=== PATIENT | female | born 1930 | race Caucasian/White ===

== ENCOUNTER 2016-04-21 14:00 | Inpatient (IN) | payer MEDICARE ==
[~2016-04-21] VITALS: Ht 162.6 cm; Wt 59.9 kg
--- NOTE | ~2016-04-21 | DS ---
PATIENT'S NAME: JOHN MARIN [facility] AGE: 85 Y [address] ROOM: [place] [address] LOCATION: [facility] ADMIT DATE: 05/03/2016 Discharge Summary DISCHARGE DATE: 05/05/2016 FAMILY PHYSICIAN: Stacy Leyva MD ATTENDING PHYSICIAN: Americo Haro PRIMARY DIAGNOSIS: Osteoarthritis, left hip. SECONDARY DIAGNOSES: 1. Atrial fibrillation. 2. Chronic obstructive pulmonary disease. 3. Hypertension. 4. Hyperlipidemia. 5. History of hypoxia. 6. Peripheral vascular disease. PROCEDURE PERFORMED: Left total hip arthroplasty. HISTORY: The patient is an 85-year old female, who presents with advanced left hip degenerative joint disease and associated severely compromised activities of daily living. The patient has decided to proceed with total left hip arthroplasty after having been thoroughly counseled regarding the risks, benefits, limitations and alternatives. Please refer to the outpatient clinic notes and admission history and physical for this patient. HOSPITAL COURSE: The patient underwent a total left hip arthroplasty on 05/03/2016 without complications. Spinal anesthesia plus subcutaneous and periarticular local anesthesia was utilized. The patient received 24 hours of perioperative prophylactic antibiotics and remained hemodynamically stable, neurovascularly intact throughout the entire hospital course. The postoperative prophylactic deep venous thrombosis prophylaxis consisted of Eliquis, early mobilization and pneumatic compression devices. Daily physical therapy for gait training, transfer training, and reinforcement of hip dislocation precautions were received. The patient progressed well in physical therapy. On the date of discharge, 05/05/2016, the incision at the hip was healing well and showed no signs of infection. DISPOSITION: Home. DISCHARGE ACTIVITY: The patient is to bear weight as tolerated with strict hip dislocation precautions as instructed. There are to be no dressing changes. Dr. Haro is to be notified immediately if there is any increased pain, fevers, chills, erythema, or drainage. DISCHARGE MEDICATIONS: PATIENT'S NAME: JOHN MARIN [facility] AGE: 85 Y [address] ROOM: [place] [address] LOCATION: [facility] ADMIT DATE: 05/03/2016 Discharge Summary DISCHARGE DATE: 05/05/2016 FAMILY PHYSICIAN: Stacy Leyva MD ATTENDING PHYSICIAN: Americo Haro 1. Eliquis 2.5 mg 1 tablet p.o. b.i.d. for atrial fibrillation and postoperative DVT prophylaxis. 2. Percocet 5/325 mg 1 to 2 tablets p.o. every 4 hours p.r.n. for pain. 3. Gabapentin 300 mg 1 tablet p.o. 3 times daily for pain. She was then instructed to continue all her other preadmission medications as instructed by her internal medicine doctor. FOLLOWUP: Followup appointment is to be with LOUIS Dawson, on 05/10/2016 for her initial postoperative evaluation. JUNIE FERNANDEZ PA-C FOR MD JAXSON KESSLER/caitlin /[id number] d: 05/11/16 0539 t: 05/17/16 1317, DISCHARGE SUMMARY
--- NOTE | ~2016-04-21 | OR ---
PATIENT'S NAME: RUBIA MARIN [facility] AGE: 85 Y [address] ROOM: [place] [address] LOCATION: [facility] ADMIT DATE: 05/03/2016 OR/Procedure Report DISCHARGE DATE: FAMILY PHYSICIAN: Stacy Leyva MD ATTENDING PHYSICIAN: TUSHAR GRANDE SURGEON: Tushar Grande MD SIGNAL CIRCUIT DESIGNER: Cruzito Taylor PA-C and Arslan Young. DATE OF PROCEDURE: 05/03/2016 PRE-OP DIAGNOSIS: Primary osteoarthritis, left hip. POST-OP DIAGNOSIS: Primary osteoarthritis, left hip. OPERATION: Left total hip arthroplasty. ANESTHESIA: Spinal anesthesia plus subcutaneous and periarticular local anesthesia (ropivacaine with epinephrine and Toradol). ESTIMATED BLOOD LOSS: Approximately 200 mL. DRAIN: None. SPECIMEN: None. COMPLICATIONS: None. IMPLANTS: 1. Tiger Trident titanium size 52 mm hemispherical uncemented acetabular shell with 1 dome hole cover and no screws. 2. Waldo X3 neutral acetabular polyethylene liner with 36 mm inner diameter. 3. Tiger Accolade II, size 7, high-offset, uncemented femoral component. 4. A 36 mm diameter metallic femoral head with -5 mm neck length. INDICATION FOR SURGERY: Rubia Marin is an 85-year-old female who presents with advanced left hip primary osteoarthritis and associated severely compromised activities of daily living. The patient has decided to proceed with hip replacement after having been thoroughly counseled regarding the associated risks, benefits, and limitations. We have specifically reviewed the risks and implications of infection, deep venous thrombosis, pulmonary embolism, mortality, neurovascular complications, blood transfusion (and associated potential for disease transmission or transfusion reaction), stiffness, instability, leg length discrepancy, mechanical deterioration of the components (due to wear and to loosening), and the potential need for revision. PATIENT'S NAME: RUBIA MARIN [facility] AGE: 85 Y [address] ROOM: [place] [address] LOCATION: [facility] ADMIT DATE: 05/03/2016 OR/Procedure Report DISCHARGE DATE: FAMILY PHYSICIAN: Stacy Leyva MD ATTENDING PHYSICIAN: TSUHAR GRANDE DESCRIPTION OF PROCEDURE: The patient was positioned in a lateral decubitus position with the left side up after administration of anesthesia and prophylactic antibiotics. An axillary roll was placed and the non-operative leg was well padded. The pelvis was locked perpendicularly to the floor on a pegboard. The left hip and entire operative extremity were prepped and draped with vigilant sterile technique. The patient's name as well as the intended operative side and procedure were confirmed with a verbal time-out involving myself, the circulating nurse, the scrub nurse, and the anesthesiologist. The left hip was approached through a standard posterolateral incision. The fascia mariam and the gluteus monika fascia were sharply divided in line with the overlying skin incision. The sciatic nerve was identified and was vigilantly protected throughout the entire case. The short external rotators and posterior capsule were divided from their respective femoral insertions and tagged with four #1 Ethibond sutures for later repair. The hip was posteriorly dislocated with combined flexion, adduction, and internal rotation. The femoral neck osteotomy was performed with an oscillating saw. Inspection of the femoral head demonstrated full-thickness loss of articular cartilage throughout the weightbearing surface. There was no femoral head collapse. There was a moderate-sized osteophyte at the periphery of the femoral head. Circumferential acetabular exposure was obtained. Inspection of acetabulum demonstrated full-thickness loss of articular cartilage throughout the anterosuperior two-thirds. There was no dysplasia. There was degenerative tearing of the anterosuperior acetabular labrum. There were no loose bodies. There was a large effusion consisting of benign appearing, translucent synovial fluid. Remnants of the acetabular labrum were sharply thoroughly excised. The acetabulum was sequentially progressively reamed up to 51 mm with hemispherical power reamers. The final acetabular shell was impacted into position in 20 degrees of anteversion and 45 degrees of inclination. An excellent press-fit was obtained. No supplemental dome screws were necessary. A neutral trial liner was inserted. Attention was next focused upon femoral preparation. The femoral canal initiator was utilized. No reaming was performed (except for with the canal finder). The patient was noted to be moderately severely osteopenic. The femoral canal was subsequently sequentially progressively broached up to a size 7. The size 7 broach obtained excellent axial and rotational stability. Trial reductions with the above specified construct yielded acceptable stability and acceptable reproduction of leg length and offset. All trial PATIENT'S NAME: BRITTNEYJOSERUBIA [facility] AGE: 85 Y [address] ROOM: [id number] [place], [place] [address] LOCATION: [facility] ADMIT DATE: 05/03/2016 OR/Procedure Report DISCHARGE DATE: FAMILY PHYSICIAN: Stacy Leyva MD ATTENDING PHYSICIAN: TUSHAR GRANDE components were removed. The final acetabular liner was inserted with excellent circumferential visualization of its locking mechanism to assure adequate deployment. The final femoral component was impacted into position. The femoral component achieved excellent axial and rotational stability. The trunnion of the femoral component was vigilantly protected prior to placement of the femoral head. The trunnion of the femoral component was thoroughly cleaned and dried prior to placement of the femoral head. The incision was thoroughly irrigated with bacteriostatic pulsatile saline lavage multiple times throughout the case. The entire joint space was thoroughly inspected and thoroughly irrigated to assure that there was no residual debris of any sort. A final reduction was then performed. After final reduction, the hip could be firmly externally rotated in full extension and zero degrees of abduction without anterior subluxation. In neutral rotation and zero degrees of abduction, the hip could be firmly flexed to 120 degrees without instability. At 90 degrees of flexion and zero degrees abduction, the hip could be internally rotated to 70 degrees before there was any hint of posterior subluxation. The posterior capsule and short external rotators were repaired through two drill holes in the posterior aspect of the greater trochanter. The fascia mariam and gluteus monika fascia were closed with multiple simple and [id number] interrupted # 1 Ethibond and #1 Vicryl sutures. Subcutaneous tissues were thoroughly re-irrigated with bacteriostatic pulsatile saline lavage. Subcutaneous tissues were re-approximated with simple buried interrupted #0 Vicryl sutures. The skin was closed with superficial buried interrupted 2-0 Vicryl sutures followed by a running subcuticular 3-0 Monocryl suture, followed by Octylseal, followed by Steri- Strips with benzoin, followed by an occlusive Mepilex dressing. There were no intra-operative complications. It should be noted that the physician's nutrition services assistant played an active, integral role throughout this entire operation. By providing expert retraction, they greatly facilitated and expedited safe and effective exposure of the proximal femur and acetabulum for preparation and implantation of the components. They were also actively involved in the patient's positioning, prepping and draping, as well as wound closure. PATIENT'S NAME: RUBIA MARIN [facility] AGE: 85 Y [address] ROOM: [id number] [place] [id number] LOCATION: [facility] ADMIT DATE: 05/03/2016 OR/Procedure Report DISCHARGE DATE: FAMILY PHYSICIAN: Stacy Leyva MD ATTENDING PHYSICIAN: TUSHAR GRANDE MD SALMA KESSLER/modl /[id number] d: 05/03/16 1428 t: 05/08/16 1006, OPERATIVE SUMMARY
[~2016-04-21 14:00] MED LIST: ACETAMINOPHEN325 MG PO; ALBUTEROL2.5 MG/31 INH; ASPIRIN EC81 MG PO; CARDIZEM CD (T120 MG PO; CILOSTAZOL50 MG PO; COLACE100 MG PO; ELIQUIS2.5 MG PO; LEVAQUIN500 MG PO; LEXAPRO10 MG PO; MULTIVITAMINS1 EAC1 PO; NAPROSYN250 MG PO; NORCO 5-325 MG1 TAB PO; OXYGEN M-15 INH; PLAVIX75 MG PO; VASOTEC10 MG PO
[2016-04-21] MEDS ORDERED: CARTIA XT240 MG PO (14:53)
[2016-04-21] MEDS ORDERED: ELIQUIS2.5 MG PO (14:55)
[2016-04-21] MEDS ORDERED: NEURONTIN300 MG PO (14:56)
[2016-05-03] MEDS ORDERED: OXYGEN M-15 INH (06:57)
--- NOTE | 2016-05-03 14:28 | NUR ---
Introduced self/role to patient who attended the preop joint class. Reports she lives in one level home in [place] with family. Plans to return home with daughter Josiane available to help as needed. Reports she has a walker, elevated toilet seat and a walk in shower. Reviewed use of IS and encouraged at least 10 deep breaths per hour. Encouraged moving feet up and down. Has foot pumps and TEDs on. Will follow and assist as needs identified.
--- NOTE | 2016-05-03 16:40 | NUR ---
Significant Event: From PACU at 1210. Dressing C/D/I. Ice at all times. CSM WNL. Percocet 1 tab for pain control. Remains on 2L O2 as per home. IV infusing to L) forearm and IV saline locked to R) hand. Ambulates with one assist and walker. No void at this time. Follow up:
--- NOTE | 2016-05-04 01:56 | NUR ---
Shift Summary: Patient can ambulate with one assist/walker. Voiding without difficulty. Tolerating regular diet well. Taking one Percocet at a time for pain with good control. Wears 2L O2 at all times at home and here.
--- NOTE | 2016-05-04 09:52 | NUR ---
945 Introduced self and CM role to patient. Patient states she is sleepy but is doing well. She states she has a walker, coal dumping equipment operator, shower bench, and other DME to assist her upon leaving the hospital. Pt lives with her daughter, whom is a nurse, that will help her with her recovery. No other needs or concerns at this time. Wrote CM name on markerboard and told pt to contact us if any concerns arise. Plan to return back to her home in [place], [place] with daughter's assistance tomorrow or 05/07. CM De Icer Installer
--- NOTE | 2016-05-04 16:47 | NUR ---
Significant Event: Ambulates with SBA and walker. Dressing C/D/I. Ice at all times. Voids without difficulty. Pain controled with Percocet 1 tab, see emar for times. Remains on 2L O2 as per home requirements. CSM WNL. Follow up: Plans to dismiss home tomorrow afternoon
--- NOTE | 2016-05-05 04:56 | NUR ---
Significant Event: Dressing is clean, dry and intact. CSM WNL. Voids without difficulty. 1 assist with transfers. Percocet last at 0110. On 2 L of oxygen and wears it at home. Possibld dismissal. Follow up:
[2016-05-05] MEDS ORDERED: COLACE100 MG PO (10:46)
[2016-05-05] MEDS ORDERED: MIRALAX17 GM PO (10:47)
[2016-05-05] MEDS ORDERED: PERCOCET 5-3251 EACH PO (10:48)
--- NOTE | 2016-05-05 14:55 | NUR ---
Patient had no questions o concerns about discharge instructions. Dressing was C/D/I. Vital signs were stable. IV's removed in both arms. Patient is on 2L/O2. Patient was wheeld to front lobby with daughter for dimissal at 1445.
== END 2016-05-05 17:35 | disposition disaster alternative care site (69) | DRG 470 ==
LOC: G3N 05-03 06:17
PROVIDERS: ADMIT Orthopaedic Surgery
PROC: 0SRB02A Replacement of Left Hip Joint with Metal on Polyethylene Synthetic Substitute, Uncemented, Open Approach (ICD-10-PCS; principal; 2016-05-03)
DX: M16.12 Unilateral primary osteoarthritis, left hip (principal); Z99.81 Dependence on supplemental oxygen; I48.91 Unspecified atrial fibrillation; I10 Essential (primary) hypertension; E78.5 Hyperlipidemia, unspecified; J44.9 Chronic obstructive pulmonary disease, unspecified; I73.9 Peripheral vascular disease, unspecified; Z79.01 Long term (current) use of anticoagulants
CPT/HCPCS: C1776; J0690; J1885; J2001; J2795; J7030; J7120

== ENCOUNTER → 2016-04-22 | Outpatient (CLI) | payer MEDICARE ==
[~2016-04-22] MED LIST changes: +CARTIA XT240 MG PO; +MIRALAX17 GM PO; +NEURONTIN300 MG PO; +PERCOCET 5-3251 EACH PO
== END | disposition disaster alternative care site (69) ==
LOC: GNJRC 10:43
DX: Z01.812 Encounter for preprocedural laboratory examination (principal); M16.12 Unilateral primary osteoarthritis, left hip

== ENCOUNTER 2016-06-27 09:56 | Emergency (ER) | payer MEDICARE ==
--- NOTE | ~2016-06-27 | CON ---
PATIENT'S NAME: JOHN MARIN [facility] AGE: 86 Y [address] ROOM: [place] [address] LOCATION: ED ADMIT DATE: 06/27/2016 Consultation DISCHARGE DATE: FAMILY PHYSICIAN: Stacy Leyva MD ATTENDING PHYSICIAN: Paul Rao HISTORY OF PRESENT ILLNESS: Ms. Mccoy is an 86-year-old female upon whom I performed a left total hip arthroplasty on 05/03. She has been enthusiastically pleased regarding the outcome of her left hip replacement (and she continues to be enthusiastically pleased regarding the outcome of her left hip replacement). She and her daughter state that she has been more active than she has been over the past 2 years. In fact, she has been anticipating a trip to [place]. She is returned to routine activities of daily living such as performing laundry, walking her mailbox for the first time in 2 years, and gardening. In fact, she has in the process of packing for an upcoming [employer] [email or web address]. The patient and her daughter called me this morning to inform me that she had developed acute left groin pain, erythema, and swelling. She states that she had a vague "pulling" sensation in her left groin last evening while performing abduction exercises with her left leg. Pain, swelling, and tenderness were quite significant this morning. I urged them to come into the emergency room promptly. I have emphasized that she has no pain in the hip itself and that all symptoms are confined to the inguinal region. PAST MEDICAL HISTORY: Significant for having undergone a right femoral to left femoral arterial bypass with Dr. Georgi Tinoco in 06/2015. She had no wound healing complications in the left groin after this procedure. She has noticed no symptoms radiating into the left leg over the last 24 hours. No swelling or abnormal temperature has been noted in the left leg. She denies fevers or chills. She notes no pain with range of motion of her hip. She is on Eliquis. She took Eliquis this morning. PHYSICAL EXAMINATION: She is alert, oriented, well-hydrated, well-nourished, slender female who appears younger than her stated age. She is alert and oriented x3 and in no distress whatsoever. Her left hip incision is completely epithelialized with the exception of two small intact thin eschars along the proximal margin of the incision. There was no erythema, induration, or swelling along the posterolateral left hip incision. There is a 12 cm diameter region of erythema over the left inguinal region and PATIENT'S NAME: JOHN MARIN [facility] AGE: 86 Y [address] ROOM: [place] [address] LOCATION: [facility] ADMIT DATE: 06/27/2016 Consultation DISCHARGE DATE: FAMILY PHYSICIAN: Stacy Leyva MD ATTENDING PHYSICIAN: Paul Rao an associated 5 cm tender mass at the subcutaneous region directly over the femoral canal. There is significant associated tenderness. There are no active skin lesions over the anterior aspect of the left groin. There is no pain or crepitation or apprehension with vigorous passive range of motion of the left hip. She is able to actively flex the left hip against gravity with no discomfort. Prior to my arrival, the patient was seen and examined by Dr. Rao (emergency room physician). It was Dr. Rao's impression that the hip was benign. He ordered an ultrasound, which demonstrated a subcutaneous fluid collection anterior to the femoral vessels, which did not communicate with the joint space and which did not appear to be an aneurysm (as per the nanotechnology engineering technician). RADIOGRAPHS: I have personally called the nanotechnology engineering technician. He informed me that the subcutaneous fluid collection was indirectly with the femoral vessels. He states that there was no suggestion whatsoever that the fluid communicated further deeply either. Specifically, he saw no evidence whatsoever of any hint of communication with the left hip joint space. Normal swell was noted in the femoral artery and within the right femoral to left femoral bypass graft. 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 No suggestion of periprosthetic left hip infection (either subjectively or objectively). Risks of the left hip prosthesis becoming secondarily infected. RECOMMENDATIONS: Prompt vascular surgery consultation. Unfortunately, Dr. Tinoco will be out of town in [place] until Tuesday. We spoke with him and confirmed this. Dr. Rao has spoken with Dr. Cobian (vascular surgeon at [facility] in [place] who is cross covering for Dr. Tinoco). Dr. Rao informed Dr. Cobian the patient is on Eliquis and informed Dr. Cobian that the patient has underlying total hip arthroplasty that we wished to do everything to prevent secondary infection of the left hip (including treating any associated infection in the left groin promptly and aggressively as soon as reasonably possible). PATIENT'S NAME: JOHN MARIN [facility] AGE: 86 Y [address] ROOM: [place] [address] LOCATION: [facility] ADMIT DATE: 06/27/2016 Consultation DISCHARGE DATE: FAMILY PHYSICIAN: Stacy Leyva MD ATTENDING PHYSICIAN: Paul Rao I have informed the patient and her daughter that the fact that she is on Eliquis could delay treatment. We have asked Dr. Cobian's permission to commence the empiric intravenous antibiotics prior to the patient's departure from [facility], [facility]. MD SALMA KESSLER/caitlin /[id number] d: 06/27/164 t: 07/08/162034, CONSULTATION REPORT
--- NOTE | ~2016-06-27 | ER ---
PATIENT'S NAME: JOHN MARIN [facility] AGE: 86 Y [address] ROOM: [place] [address] LOCATION: ED ADMIT DATE: 06/27/2016 ER/Outpatient Report DISCHARGE DATE: FAMILY PHYSICIAN: Stacy Leyva MD ATTENDING PHYSICIAN: Paul Rao TIME OF ARRIVAL: 0956 hours. TIME OF EVALUATION: 1002 hours. CHIEF COMPLAINT: Left groin pain, redness, and swelling. HISTORY OF PRESENT ILLNESS: The patient is an 86-year-old female presents to emergency department today with chief complaint of left groin pain, redness, and swelling. She reports this started earlier this morning. The patient does have a history of right- to-left fem-fem bypass graft as well as a left iliac stent placed about approximately one year ago. She did undergo a left total hip 2 months ago. She does report some low-grade fever subjectively and chills. Denies any nausea or vomiting. No diarrhea or constipation. She has been ambulating and the hip is mildly painful, 4-10 in severity, it is sharp. PAST MEDICAL HISTORY: COPD, dyslipidemia, hypertension, osteoporosis, peripheral vascular disease, and depression. PAST SURGICAL HISTORY: Smotp-te-esrp fem-fem bypass, left common iliac stents, cataract surgery, cholecystectomy, colonoscopy, left total hip. SOCIAL HISTORY: The patient denies any tobacco use. Reports one beer daily. Denies any illicit drug use. ALLERGIES: NO KNOWN DRUG ALLERGIES. MEDICATIONS: Please see list. PRIMARY CARE DOCTOR: Stacy Leyva MD. PATIENT'S NAME: JOHN MARIN [facility] AGE: 86 Y [address] ROOM: [place] [address] LOCATION: [facility] ADMIT DATE: 06/27/2016 ER/Outpatient Report DISCHARGE DATE: FAMILY PHYSICIAN: Stacy Leyva MD ATTENDING PHYSICIAN: Paul Rao REVIEW OF SYSTEMS: All systems are reviewed by myself and negative with the exception of those discussed in HPI and past medical history. PHYSICAL EXAMINATION: VITAL SIGNS: Blood pressure 129/76, pulse 68, respiratory rate 18, temperature 99.2, oxygen saturation 92% on 2 L nasal cannula. GENERAL: The patient is an 86-year-old female, who appears stated age, in no acute distress. Well developed, well nourished. HEENT: Normocephalic, atraumatic. Pupils are equal, round, and reactive to light. NECK: Supple. There is no nuchal rigidity. CARDIOVASCULAR: Regular rate and rhythm. No murmurs, rubs, or gallops. LUNGS: Diminished diffusely. No wheezes, rales, or rhonchi. ABDOMEN: Soft, nontender, and nondistended. No rebound, rigidity, or guarding. MUSCULOSKELETAL: The patient does move all 4 extremities. No axial loading noted to the left hip. SKIN: The patient does have in the left inguinal region area of erythema at the inguinal fold. There is mass palpated. It is nonpulsatile. 2/4 DP and PT pulses are equal bilaterally. LABORATORY DATA AND X-RAYS: Labs and x-rays are obtained. An ultrasound of the left inguinal region was obtained and I have discussed results with the environmental engineering technician and reviewed the images myself. It does reveal a 5 cm x 4 cm x 3 cm well-defined septated fluid collection to superficial subcutaneous tissues to the anterior aspect of the left inguinal area. Does not appear to involve the femoral vein. Does not appear to involve the left hip. CBC: White blood cell count 12.1, hemoglobin 15.3, hematocrit 47.8, and ANC is 15.3, lactate is normal. Coags are normal. CMP is unremarkable. LFTs are normal. Procalcitonin is normal. IMPRESSION: 1. 5 cm x 4 cm x 3 cm septated well-defined fluid collection to superficial subcutaneous tissue in the anterior aspect of the left inguinal region with concern for potential abscess above femoral-femoral bypass. 2. Initial visit. EMERGENCY DEPARTMENT COURSE: The patient was brought back to the examination room. Seen and evaluated by myself. IV is established. Laboratory analysis and imaging are obtained as described above. Ultrasound is obtained and discussed. Prior to arrival here in the emergency departmenThe patient's family had called Dr. Haro who had performed the total hip two months ago. Dr. Haro has seen and evaluated the PATIENT'S NAME: JOHN MARIN [facility] AGE: 86 Y [address] ROOM: [place] [address] LOCATION: ED ADMIT DATE: 06/27/2016 ER/Outpatient Report DISCHARGE DATE: FAMILY PHYSICIAN: Stacy Leyva MD ATTENDING PHYSICIAN: Paul Rao patient here in the emergency department as well. Please see his dictation. With the evidence of fluid collection on anterior aspect and concern for potential abscess, there is certainly concern for potential graft infection. I have contacted Dr. Cobian who is on-call for [facility] in [place]. I have discussed the case with him. He does report likely would not be surgical until tomorrow, does recommend contacting Dr. Tinoco who placed the graft. I have contacted Dr. Tinoco. He is currently out of town and will be until late next week. He has recommended transfer for further evaluation, treatment, and management. We did attempt to contact Dr. Cobian again. In the meantime, I did contact [facility] for potential transfer, there vascular surgeon had recommended [facility]. [facility] was contacted. [facility] does not have any bed availability. At this time, Dr. Cobian was contacted and he does agree to accept the patient for further evaluation, treatment, and management. The patient is transferred via ambulance to [facility] under the care of Dr. Cobian. The patient did receive 1 g of vancomycin IV as well as 4.5 g of Zosyn IV prior to transfer. The patient did require critical care time of 31 minutes, this did include talking with family, talking with multiple consultants, ordering tests, reviewing tests, as well as close monitoring the patient with potential graft infection and fluid collection of left inguinal region. This did require multiple consultations with multiple physicians. DISPOSITION: The patient transferred to [facility] in [place] in stable condition. DO GISSELLE AGUIRRE/rembertol /[id number] d: [id number] t: 06/30/16 0654, OUTPATIENT REPORT
[2016-06-27 10:33] LABS: BASOPHIL # 0.1 K/uL (0.0-0.2); BASOPHIL % 0.4 %; EOSINOPHIL # 0.1 K/uL (0.0-0.5); EOSINOPHIL % 0.7 %; HEMATOCRIT 47.8 % (30.0-46.0); HEMOGLOBIN 15.3 g/dL (10.0-15.0); IMMATURE GRANULOCYTE % 0.2 %; LYMPHOCYTE # 1.9 K/uL (0.8-4.0); LYMPHOCYTE % 15.5 %; MCV 96.8 fl (83.0-98.0); MONOCYTE # 1.3 K/uL (0.0-1.0); MONOCYTE % 10.9 %; MPV 9.4 fl (9.4-12.4); NEUTROPHIL # (ANC) 8.7 K/uL (1.8-7.8); NEUTROPHIL % 72.3 %; NRBC % 0 /100WBC (0-0.00); PLATELET COUNT 246 K/uL (150-450); RBC 4.94 M/uL (3.00-5.00); RDW-CV 14.1 % (11.9-14.6); WBC 12.1 K/uL (4.0-11.0)
[2016-06-27 10:44] LABS: INR - (THERAPEUTIC) 0.97 (0.92-1.07); PROTIME 10.2 SECONDS (9.8-11.4); PTT 28 SECONDS (25-32)
[2016-06-27 10:50] LABS: ALBUMIN 3.3 gm/dL (3.5-5.0); ALK PHOS 69 IU/L (33-138); ALT 12 IU/L (12-78); ANION GAP 11.4 (10.0-19.0); AST 9 IU/L (10-40); BLOOD UREA NITROGEN 11 mg/dL (6-24); CALCIUM 8.9 mg/dL (8.5-10.5); CHLORIDE 106 mMol/L (96-110); CO2 28 mMol/L (22-32); CREATININE 0.5 mg/dL (0.5-1.1); ESTIMATED GFR (MDRD EQUATION) > 60; POTASSIUM 4.4 mMol/L (3.7-5.1); SODIUM 141 mMol/L (135-145); TOTAL BILIRUBIN 0.7 mg/dL (0.0-1.5); TOTAL PROTEIN 6.7 g/dL (6.0-8.4)
== END 2016-06-27 13:30 | disposition disaster alternative care site (69) ==
LOC: GMED 09:56
PROVIDERS: Emergency Medicine
DX: R22.9 Localized swelling, mass and lump, unspecified (principal); I10 Essential (primary) hypertension; J44.9 Chronic obstructive pulmonary disease, unspecified; E78.5 Hyperlipidemia, unspecified; M81.0 Age-related osteoporosis without current pathological fracture; F32.9 Major depressive disorder, single episode, unspecified; Z90.49 Acquired absence of other specified parts of digestive tract; Z98.890 Other specified postprocedural states
CPT/HCPCS: J2001; J2543; J3370; J7050

== ENCOUNTER → 2016-06-27 | Outpatient (CLI) | payer MEDICARE | END | disposition disaster alternative care site (69) | LOC: GAMB 13:15 | DX: R52 Pain, unspecified (principal); Z79.82 Long term (current) use of aspirin | CPT/HCPCS: A0422; A0425; A0428 ==